=== PATIENT | male | born 1945 | race Caucasian/White ===

== ENCOUNTER 2022-02-03 07:09 | Day surgery (SDC) | payer OTHER ==
[2022-02-01 11:23] LABS: COVID AG,FIA SOURCE NASAL SWAB
[~2022-02-03] VITALS: Ht 180.3 cm; Wt 97.7 kg
[~2022-02-03 07:09] MED LIST: GLIM2 PO; LOSA-381 PO; RINGERS SOLUTION,LACTATED 500 ML IV ONE
[2022-02-03] MEDS ORDERED: TETRACAINE HCL/PF 0.5% 4 ML OPHTHALMIC SOLUTION OD ONE (07:10)
[2022-02-03] MEDS ORDERED: EPHEDrine SULFATE 50 MG/ML VIAL IM ONE (07:10)
[2022-02-03] MEDS ORDERED: CHONDR SULF A SOD/HYALURONATE 1.05 ML KIT IO ONE (07:10)
[2022-02-03] MEDS ORDERED: 0.9% SODIUM CHLORIDE 10 ML VIAL IVP ONE (07:10)
[2022-02-03] MEDS ORDERED: EPINEPHrine 1:1,000 [1 MG/ML] VIAL ET ONE (07:10)
[2022-02-03] MEDS ORDERED: BALANCED SALT 15 ML OPHTHALMIC IRRIG.SOLN IO ONE (07:10)
[2022-02-03] MEDS ORDERED: POVIDONE-IODINE 5% 30 ML OPHTHALMIC SOLUTION OD ONE (07:10)
[2022-02-03] MEDS ORDERED: LIDOCAINE/PF 1% 2 ML VIAL CAUDAL ONE (07:10)
[2022-02-03] MEDS ORDERED: FentaNYL CITRATE PF 100 MCG/2 ML VIAL IVP ONE (07:10)
[2022-02-03] MEDS ORDERED: ACETYLCHOLINE CHLORIDE 1 EA INTRAOCULAR SOLUTION KIT IO ONE (07:10)
[2022-02-03] MEDS ORDERED: 0.9% SODIUM CHLORIDE 10 ML VIAL IRRIG ONE (07:10)
[2022-02-03] MEDS ORDERED: MethylPREDNISolone SOD SUCC 40 MG/ML VIAL IVP ONE (07:10)
[2022-02-03] MEDS ORDERED: NEOMYCIN/POLYMYXIN B/DEXAMETH 3.5 GM OPHTHALMIC OINTMENT OD ONE (07:10)
[2022-02-03] MEDS ORDERED: MIDAZOLAM HCL 2 MG/2 ML VIAL IVP ONE (07:10)
[2022-02-03] MEDS ORDERED: CYCLOPENTOLATE HCL 1% 2 ML OPHTHALMIC SOLUTION ONE (07:12)
[2022-02-03] MEDS ORDERED: TROPICAMIDE 1% 2 ML OPHTHALMIC SOLUTION ONE (07:12)
[2022-02-03] MEDS ORDERED: PHENYLEPHRINE HCL 2.5% 2 ML OPHTHALMIC SOLUTION ONE (07:12)
[2022-02-03] MEDS ORDERED: KETOROLAC TROMETHAMINE 0.5% 5 ML OPHTHALMIC SOLUTION ONE (07:13)
[2022-02-03] MEDS: TROPICAMIDE 1% 2 ML OPHTHALMIC SOLUTION OD SCH ×3 (07:36→07:50)
[2022-02-03] MEDS: KETOROLAC TROMETHAMINE 0.5% 5 ML OPHTHALMIC SOLUTION OD SCH ×3 (07:36→07:50)
[2022-02-03] MEDS: PHENYLEPHRINE HCL 2.5% 2 ML OPHTHALMIC SOLUTION OD SCH ×3 (07:37→07:50)
[2022-02-03] MEDS: CYCLOPENTOLATE HCL 1% 2 ML OPHTHALMIC SOLUTION OD SCH ×3 (07:37→07:50)
== END 2022-02-03 11:00 | disposition home or self-care (01) ==
LOC: SURGERY 07:09
PROVIDERS: ATTEND Ophthalmology
DX: E11.36 Type 2 diabetes mellitus with diabetic cataract (principal); H25.811 Combined forms of age-related cataract, right eye; Z79.899 Other long term (current) drug therapy; E66.3 Overweight; I10 Essential (primary) hypertension; Z98.890 Other specified postprocedural states; Z20.822 Contact with and (suspected) exposure to COVID-19
CPT/HCPCS: 93005; 87426; 66984; C9803; J0690; J3490 ×2; J0171; J3010; J2250; J2920; Q9967; J7120; V2632